=== PATIENT | male | born 1970 | race Caucasian/White ===

== ENCOUNTER 2018-07-20 04:59 | Day surgery (SDC) | payer BC ==
--- NOTE | 2018-06-30 15:25 | HP ---
DATE OF ADMISSION: 07/20/2018 Patient is to be admitted to [facility] on July 20, 2018. HISTORY: This is a 47-year-old man who presents for bilateral laparoscopic inguinal hernia repair with mesh. Over the course of the past year, the patient developed a bulge at the level of the left groin. That has become progressively larger in size, and now, it is considerably large. On examination, patient also with significant attenuation of the right groin and a suspicion of right inguinal hernia, as well. No underlying GI, , or respiratory complaints to suggest predisposition of hernia formation. Patient does, however, work as a [employer] and does do heavy work on a rather regular basis. PAST MEDICAL HISTORY: Patient has no significant past medical history. No history of hypertension, heart disease, diabetes, or respiratory, renal, or hepatic insufficiency. PAST SURGICAL HISTORY: Nil. ALLERGIES: None known. REGULAR MEDICATIONS: None. SOCIAL HISTORY: Negative for tobacco. Patient did smoke up until 1992. Moderate alcohol use/not quantified. FAMILY HISTORY: Nil. REVIEW OF SYSTEMS: Nil. PHYSICAL EXAMINATION: Abdomen: Patient examined in erect supine position. There is a moderate to large size reducible left inguinal hernia. The right groin is significant for attenuation and suggestion of a weak floor. Testes unremarkable. IMPRESSION: Obvious large reducible left inguinal hernia. Suspect right inguinal hernia. PLAN: Laparoscopic repair of left inguinal hernia with mesh, possible right repair with mesh. If the procedure cannot be accomplished laparoscopically, we will proceed with open left repair with mesh. Indications, alternatives, possible complications were reviewed. Issues that relate to the mesh including, but not limited to, infection, rejection, migration, and neuritides have been reviewed. Consent obtained. Patient is to be seen preoperatively by her Dr. Bloom. Please refer to those notes for those medical details. Nelia BEATTY/[id number] cc: Dr. Merle GOETZ
[2018-07-19 15:56] VITALS: BMI 29.0
[2018-07-20] MEDS ORDERED: ceFAZolin SODIUM 1 GM VIAL ONE (06:22)
[2018-07-20] MEDS ORDERED: TAMSULOSIN HCL 0.4 MG CAP ONE (06:22)
[2018-07-20] MEDS ORDERED: MIDAZOLAM HCL 2 MG/2 ML SINGLE DOSE VIAL ONE ×2 (07:09)
[2018-07-20] MEDS ORDERED: DEXAMETHASONE SOD PHOSPHATE/PF 10 MG/ML SDV ONE (07:11)
[2018-07-20] MEDS ORDERED: ROPIVACAINE HCL 0.5% 30ML VIAL ONE (07:11)
[2018-07-20] MEDS ORDERED: BUPIVACAINE HCL/PF 0.5% (5MG/ML) 10 ML VIAL ONE (07:33)
[2018-07-20] MEDS ORDERED: ceFAZolin SODIUM 1 GM VIAL IVPB ONE (08:30)
[2018-07-20] MEDS ORDERED: ONDANSETRON 4 MG/2 ML VIAL IVPUSH PRN (09:28)
[2018-07-20] MEDS ORDERED: oxyCODONE HCL 5 MG TABLET PO PRN (09:28)
[2018-07-20] MEDS ORDERED: LACTATED RINGERS SOLUTION 1,000 ML IV SCH (09:30)
--- NOTE | 2018-07-20 09:55 | OP ---
DATE OF OPERATION: 07/20/2018 PREOPERATIVE DIAGNOSIS: Bilateral inguinal hernias. POSTOPERATIVE DIAGNOSIS: Incarcerated left direct inguinal hernia / indirect right inguinal hernia. PROCEDURE: Bilateral laparoscopic inguinal hernia repair with mesh. OPERATING SURGEON: Gautam Long MD REHABILITATION THERAPY AIDE: Carlos Colon MD ANESTHESIA: Jade Albright MD (general) HISTORY: This is a 48-year-old man who presents for laparoscopic inguinal hernia surgery. Patient had an obvious rather large left inguinal hernia. Patient also had findings suspicious for right inguinal hernia. At the time of surgery, he was found to have an incarcerated left direct inguinal hernia as well as an indirect right inguinal hernia. Indications, alternatives, possible complications were reviewed. Consent obtained. DESCRIPTION OF PROCEDURE: With the patient in the supine position and after general anesthesia, the abdomen was prepped and draped in sterile fashion using chlorhexidine. A small incision was made just beneath the umbilicus and off to the right of the midline. The subcutaneous tissues were . The anterior rectus sheath was identified and incised. The rectus muscle fibers were retracted laterally in both directions exposing the preperitoneal space. The dissecting blade was advanced in the preperitoneal space towards the pubis. The balloon was insufflated, creating the dissection. The balloon was removed leaving the structural collar in place. The preperitoneal space was insufflated to an adequate pressure and volume using CO2 gas. The camera lens was passed through this port, and the preperitoneal space visualized. Under direct vision, an 11-mm port was placed in the midline midway between the pubis and the umbilicus. The operating instruments were passed through this port. Exploration of the preperitoneal space allowed recognition of the anatomy. On the right side, there was an indirect hernia noted. On the left side, there was an incarcerated direct inguinal hernia noted with a small indirect component. First directing our attention to the right side, the indirect component was reduced with skeletonization of the cord. No right direct femoral component noted. The right side was repaired using a piece of 4 x 6 inch permanent mesh, which was keyholed and placed in the preperitoneal space. It was fashioned on the right side using counterpalpation and an AbsorbaTack. The mesh was fixed superiorly to the ileopubic tract. The mesh was fixed anterior to the anterior abdominal wall. The mesh was fixed inferiorly to Coopers ligament and to the pubic tubercle. The keyhole leaf was wrapped around the cord and tacked in place buttressing the internal ring. Now, directing our attention to the contralateral side, the incarcerated direct component was reduced. The cord was also skeletonized on the left where the small indirect component was reduced, as well. There was no left femoral component noted. The left side was repaired with the same mesh and technique as described above for the contralateral side. After completion of the repair, the mesh was noted to overlap in the midline. Adequate hemostasis was ensured. The low midline port was removed under direct vision. No bleeding identified. Ultimately, the camera lens and structural collar was removed from the umbilical port site, and the gas was allowed to escape from the preperitoneal space. The fascia at each of the 2 port sites was closed with interrupted 0 Vicryl suture. Both skin wounds were closed using subcuticular 4-0 Biosyn sutures. NEEDLE AND INSTRUMENT COUNT: Correct. ESTIMATED BLOOD LOSS: Minimal. SPECIMENS: None. DRAINS: None. IMPLANTS: Mesh x2. Patient tolerated the procedure. The procedure was terminated. Nelia [id number] MTDD
[2018-07-20 11:39] VITALS: TEMP 98.7
[2018-07-20] MEDS ORDERED: oxyCODONE HCL 5 MG TABLET ONE ×2 (11:54→14:43)
[2018-07-20] MEDS ORDERED: oxyCODONE HCL 5 MG TABLET PO ONE ×2 (12:00→14:40)
[2018-07-20 15:20] VITALS: BP 114/67; PULSE 78
== END 2018-07-20 15:25 | disposition home or self-care (01) ==
LOC: JASU-SURG 04:59
PROVIDERS: ATTEND Surgery
PROC: 0YUA4JZ Supplement Bilateral Inguinal Region with Synthetic Substitute, Percutaneous Endoscopic Approach (ICD-10-PCS; principal; 2018-07-20 08:00)
DX: K40.30 Unilateral inguinal hernia, with obstruction, without gangrene, not specified as recurrent (principal); K40.90 Unilateral inguinal hernia, without obstruction or gangrene, not specified as recurrent
CPT/HCPCS: 94760